=== PATIENT | male | born 1980 | race African-American/Black ===

== ENCOUNTER 2016-04-18 08:32 | Emergency (ER) | payer MEDICARE, MEDICAID ==
[~2016-04-18] VITALS: Ht 188 cm; Wt 77.6 kg
[2016-04-18 08:39] VITALS: BP 145/69
[2016-04-18] MEDS ORDERED: MUCI600T34 PO (08:46)
[2016-04-18] MEDS ORDERED: MOTR200T44 PO (08:46)
[2016-04-18] MEDS ORDERED: KEFL500C7 PO (09:06)
== END 2016-04-18 09:21 | disposition home or self-care (01) ==
LOC: M ED 09:13
DX: F17.210 Nicotine dependence, cigarettes, uncomplicated (principal)

== ENCOUNTER 2016-10-13 09:57 | Emergency (ER) | payer MEDICARE, MEDICAID ==
[~2016-10-13] VITALS: Ht 185.4 cm; Wt 75.5 kg
[~2016-10-13 09:57] MED LIST: KEFL500C17 PO; MOTR200T44 PO; MUCI600T37 PO
--- NOTE | 2016-10-13 11:37 | REP ---
RIGHT FOOT SERIES: Four views. HISTORY: Lateral pain after trauma. FINDINGS: There is a transversely oriented fracture through the proximal laith metaphyseal zone of the 5th metatarsal. There is associated soft-tissue swelling. There may be early evidence of healing periosteal reaction. No other fracture is seen. IMPRESSION: Subacute fracture of the proximal laith metaphyseal zone of the 5th metatarsal. Signed by Pipe Mehta MD 10/13/2016 11:52 A
[2016-10-13 12:18] VITALS: BP 119/73
[2016-10-13] MEDS ORDERED: NORCOTAB PO (12:27)
== END 2016-10-13 12:35 | disposition home or self-care (01) ==
LOC: M ED 09:57
DX: S92.351A Displaced fracture of fifth metatarsal bone, right foot, initial encounter for closed fracture (principal); X58.XXXA Exposure to other specified factors, initial encounter; Y92.099 Unspecified place in other non-institutional residence as the place of occurrence of the external cause; Y93.9 Activity, unspecified; Y99.9 Unspecified external cause status; F17.200 Nicotine dependence, unspecified, uncomplicated

== ENCOUNTER → 2017-12-07 | Outpatient (REF) | payer MEDICARE, MEDICAID ==
[2017-12-07 14:09] LABS: CHLAMYDIA DNA AMPLIFICATION NEGATIVE (NEGATIVE); GC DNA AMPLIFICATION NEGATIVE (NEGATIVE)
== END ==
LOC: M LAB REF 12:28
DX: Z00.00 Encounter for general adult medical examination without abnormal findings (principal); Z72.51 High risk heterosexual behavior; Z11.59 Encounter for screening for other viral diseases
CPT/HCPCS: 87591

== ENCOUNTER 2020-07-16 00:31 | Emergency (ER) | payer MEDICARE ==
[~2020-07-16] VITALS: Ht 188 cm; Wt 72.7 kg
[2020-07-16 00:31] VITALS: BP 138/109
[~2020-07-16 00:31] MED LIST changes: +HYDR-3715 PO
[2020-07-16 01:21] LABS: BASO % 0.5 % (0.0-1.0); EOS # 0.3 10^3/uL (0.0-0.5); EOS % 6.4 % (0.0-3.0); HEMATOCRIT 42.8 % (42.0-52.0); HEMOGLOBIN 13.9 g/dl (13.5-17.5); LYMPH # 2.1 10^3/uL (1.5-5.0); LYMPH % 51.2 % (24.0-44.0); MEAN CORPUSCULAR HGB CONC 32.5 g/dl (32.0-36.5); MEAN CORPUSCULAR VOLUME 89.4 fl (80.0-96.0); MONO # 0.4 10^3/uL (0.0-0.8); MONO % 8.6 % (2.0-8.0); NEUTROPHILS # 1.4 10^3/uL (1.5-8.5); NEUTROPHILS % 33.1 % (36.0-66.0); PLATELET COUNT, AUTOMATED 196 10^3/uL (150-450); RED BLOOD COUNT 4.79 10^6/uL (4.30-6.10); WHITE BLOOD COUNT 4.1 10^3/uL (4.0-10.0)
--- NOTE | 2020-07-16 01:42 | REPVR ---
PROCEDURE INFORMATION: Exam: US Scrotum Exam date and time: 07/16/2020 1:23 AM Age: 40 years old Clinical indication: Scrotum pain; Additional info: Testicular pain TECHNIQUE: Imaging protocol: Real-time ultrasound of the scrotum and contents with color Doppler and image documentation. COMPARISON: No relevant prior studies available. FINDINGS: Right testicle: Normal. No mass. No torsion. Normal vascular flow. Left testicle: Normal. No mass. No torsion. Normal vascular flow. Epididymides: Normal. Scrotum: Questionable small left-sided varicocele. IMPRESSION: 1. No acute abnormality. 2. Questionable small left-sided varicocele. Electronically signed by: Aashish Phelps On 07/16/2020 01:42:05 AM
[2020-07-16 02:35] LABS: BLOOD UREA NITROGEN 11 MG/DL (7-18); CALCIUM LEVEL 8.9 MG/DL (8.5-10.1); CARBON DIOXIDE LEVEL 26 MEQ/L (21-32); CHLORIDE LEVEL 106 MEQ/L (98-107); CREATININE FOR GFR 1.13 MG/DL (0.70-1.30); GLOMERULAR FILTRATION RATE > 60.0 (>60); GLUCOSE, FASTING 159 MG/DL (70-100); POTASSIUM SERUM 3.5 MEQ/L (3.5-5.1); SODIUM LEVEL 140 MEQ/L (136-145)
== END 2020-07-16 03:17 | disposition left against medical advice (07) ==
LOC: M ED 00:31
DX: Z53.21 Procedure and treatment not carried out due to patient leaving prior to being seen by health care provider (principal)

== ENCOUNTER 2020-08-02 08:42 | Emergency (ER) | payer MEDICARE ==
[~2020-08-02] VITALS: Ht 188 cm; Wt 75.4 kg
[2020-08-02] MEDS ORDERED: KETOROLAC TROMETHAMINE 10 MG TAB PO ONE (10:00)
--- NOTE | 2020-08-02 10:44 | REP ---
INDICATION: ain/previous injury COMPARISON: None. TECHNIQUE: AP, lateral, bilateral oblique, and coned-down views of the lumbar spine. FINDINGS: Alignment is maintained. Vertebral bodies are intact. Disc spaces are relatively normal/age-appropriate. No acute fracture/compression injury or subluxation. No obvious spondylolysis or spondylolisthesis.. IMPRESSION: Essentially normal Lumbosacral Spine series. <Electronically signed by Roland Faulkner > 08/02/20 [id number]
[2020-08-02] MEDS ORDERED: NAPR-837 PO (11:01)
[2020-08-02] MEDS ORDERED: CYCL5TAB PO (11:01)
[2020-08-02 11:19] VITALS: BP 120/74
== END 2020-08-02 11:21 | disposition home or self-care (01) ==
LOC: M ED 08:42
DX: M54.5 Low back pain (principal); F17.200 Nicotine dependence, unspecified, uncomplicated; J45.909 Unspecified asthma, uncomplicated

== ENCOUNTER → 2021-07-06 | Outpatient (REF) | payer MEDICARE, MEDICAID ==
[~2021-07-06] MED LIST changes: +CYCL5TAB PO; +NAPR-837 PO
== END ==
LOC: M LAB REF 12:15
PROVIDERS: ATTEND Physician Assistant
DX: K13.70 Unspecified lesions of oral mucosa (principal)

== ENCOUNTER 2021-07-21 08:34 | Emergency (ER) | payer MEDICARE, MEDICAID ==
[~2021-07-21] VITALS: Ht 182.9 cm; Wt 71.3 kg
[2021-07-21 08:35] VITALS: BP 116/70
== END 2021-07-21 10:47 | disposition left against medical advice (07) ==
LOC: M ED 08:34
DX: Z53.21 Procedure and treatment not carried out due to patient leaving prior to being seen by health care provider (principal)

== ENCOUNTER → 2021-12-21 | Outpatient (REF) | payer MEDICARE, MEDICAID | LOC: M SFHCDERM 14:46 | PROVIDERS: ATTEND Physician Assistant | DX: B07.9 Viral wart, unspecified (principal) ==